=== PATIENT | female | born 1950 | race Caucasian/White ===

== ENCOUNTER 2024-01-07 06:37 | Day surgery (SDC) | payer MEDICARE ==
[2024-01-07] MEDS ORDERED: Depo-Medrol 40 MG/ML IM ONE (06:38)
[2024-01-07] MEDS ORDERED: LIDOCAINE HCL 2% 100 MG/5 ML IJ ONE (06:38)
[2024-01-07] MEDS ORDERED: DIPRIVAN 200 MG/20 ML IV ONE (08:38)
[2024-01-07] MEDS ORDERED: Lactated Ringers 1,000 ML IV ONE (09:20)
--- NOTE | 2024-01-07 10:28 | XRAY ---
Indication: Bilateral L4-S1 MBB. Intraoperative fluoroscopy provided for 19 seconds. Single digital spot image submitted for interpretation demonstrates posterior needle tips projecting over the expected left and right L4-S1 nerve roots. Correlate with intraoperative findings/report.
--- NOTE | 2024-01-07 12:39 | XRAY ---
19 seconds of fluoroscopy was used in surgery for a bilateral L4-S1 MBB.
== END 2024-01-07 09:13 | disposition home or self-care (01) ==
LOC: SDC-PAIN 06:37
PROVIDERS: ATTEND Psychiatry & Neurology Pain Medicine
DX: M47.816 Spondylosis without myelopathy or radiculopathy, lumbar region (principal); E11.9 Type 2 diabetes mellitus without complications
CPT/HCPCS: 64493; 64494; 72020; 77002; 82947; J1010; J2704